=== PATIENT | female | born 1950 ===

== ENCOUNTER → 2018-09-07 05:47 | Day surgery (SDC) | payer MEDICARE ==
[~2018-09-07 05:47] MED LIST: Acetaminophen TAB* 325 MG ONE; Acetaminophen TAB* 325 MG PO ONE; Acetaminophen TAB* 325 MG PO PRN; Buffered Lidocaine 1% SYRIN* 1 ML/SYRINGE INTRADERM ONE; Bupivacaine 0.25% SDV PF* 10 ML VIAL INJ ONE; Bupivacaine 0.5% W/EPI SDV* 30 ML VIAL ONE; Dexamethasone IV* 4 MG/ML 1 ML (4 MG) ONE; DiMENhydriNATE IV* 50 MG/ML VIAL IV PUSH PRN; Famotidine IV* 10 MG/ML 2 ML (20 mg) ONE; HYDROcodone/ACETAMIN 5-325 MG* 1 TAB ONE; HYDROcodone/ACETAMIN 5-325 MG* 1 TAB PO PRN; Ketorolac INJ* 30 MG/ML 1 ML VIAL ONE; Lactated Ringers 1000 ML Bag* 1,000 ML IV SCH; Levalbuterol 0.63MG/3ML NEB* UNIT OF USE INH PRN; Lidocaine 2% PF * 5 ML VIAL ONE; Metoprolol Tartrate IV* 1 MG/ML 5 ML VIAL ONE; Midazolam* 1 MG/ML 2 ML VIAL (2 MG) ONE; Naloxone* 0.4 MG/ML 1 ML VIAL IV PRN; Ondansetron INJ* 2 MG/ML VIAL IV PRN; Ondansetron INJ* 2 MG/ML VIAL ONE; PROCHLORPERAZINE INJ 5 MG/ML 2 ML VIAL IV PRN; Propofol* 10 MG/ML 20 ML BTL ONE; ROPIVACAINE 5 MG/ML 30 ML BTL (0.5%) ONE; Ropivacaine (OR use only) 2 MG/ML 10 ML ONE; ceFAZolin 2 GM PREMIX in ORs 2 GM/50 ML BAG ONE; diPHENhydraMINE IV* 50 MG/ML 1 ml VIAL (BENADRYL) IV PRN; fentaNYL* 50 MCG/ML 2 ML VIAL (100 MCG VIAL) IV PRN; fentaNYL* 50 MCG/ML 2 ML VIAL (100 MCG VIAL) ONE
[2018-09-07] MEDS: fentaNYL* 50 MCG/ML 2 ML VIAL (100 MCG VIAL) IV PRN ×2 (10:41→11:57)
[2018-09-07] MEDS: HYDROcodone/ACETAMIN 5-325 MG* 1 TAB PO PRN ×2 (10:42→11:57)
--- NOTE | 2018-09-07 11:32 | OP ---
Operative Report - Blank - Operative Report Date of Operation: 09/07/18 Note: PATIENT: Rosalind Horowitz DATE OF : 1950 DATE OF SURGERY: 09/07/2018 SURGEON: Josue Mckeon MD QUALITY CONSULTANT: SAMI Salvador, whos assistance was necessary for positioning, retraction, help with instrumentation, and closure. ANESTHESIOLOGIST: Dr. 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 Painful retained hardware. 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 Painful retained hardware. OPERATION: 1. Removal of deep hardware from the left 4th and 5th metatarsals. 2. 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 3. 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 ANESTHESIA: General IMPLANTS: Arthrex plate and screws TOURNIQUET TIME: Less than 2 hours with a well-padded thigh tourniquet at 250mmHg SPECIMENS: none ESTIMATED BLOOD LOSS: minimal COMPLICATIONS: none STATUS: Stable from the operating room to the recovery room and then home. INDICATIONS FOR PROCEDURE: Rosalind had left 4th and 5th metatarsal fractures that went on to nonunion. She then had ORIFs and again went on to nonunions. Both operative and non operative treatment alternatives were reviewed. Further, the nature and risks of surgery were reviewed in careful detail, in the office as well as the pre-operative holding area. Our discussions regarding the risks of surgery included, but were not limited to, infection, wound problems, nerve injury, neuroma, RSD, persistent symptoms, blood clot, nonunion, malunion, hardware failure, failure of the surgery, and even the remote chance of catastrophic complication. DESCRIPTION OF PROCEDURE: The patient was seen in the preoperative holding unit and informed written consent was obtained. The appropriate extremity was marked. The patient was then brought to the operating room and carefully positioned on the operating room table. Anesthesia was induced. All bony prominences were padded with great care. A chlorhexidine based pre-scrub was performed followed by a chloraprep prep and drape in standard sterile fashion. A surgical safety pause was then conducted in which we confirmed the appropriate patient, extremity, planned procedure, availability of equipment, indication and administration of prophylactic antibiotics, and DVT prophylaxis in the form of a compression boot on the non-surgical extremity. I began by utilizing the prior longitudinal incision overlying the fourth metatarsal. This was extended. I dissected down to the fourth metatarsal plate. The screw heads were exposed and removed. The plate was then removed. I assessed the fracture site of the fourth metatarsal and it was grossly nonunited. I therefore cleaned out the fibrous tissue at the nonunion site with a scalpel and a rongeur. I then used a 2.4 mm justine to roughen up the nonunion ends of the bone. Attention was then turned to the left iliac crest which had been previously prepped and draped in a standard fashion. A small amount of Marcaine with epinephrine was placed in the subcutaneous tissues and then also used to anesthetize the periosteum and the soft tissues over the ASIS. Just posterior to the ASIS, a small stab incision using a 15 blade was made. A Jamshidi needle was then advanced being careful to stay centered on the iliac crest. This was advanced slowly and carefully through the superior cortex of the crest between the inner and outer tables of bone. The stylet was then removed from the Jamshidi needle and multiple cores on bone graft were harvested from the iliac crest. The incision site for the bone graft was then copiously irrigated and closed in layers utilizing 3-0 Monocryl and 3-0 nylon. A sterile dressing was applied. I then turned my attention back to the fourth metatarsal. Bone graft was packed into the nonunion site. The fracture site was compressed and a plate was placed dorsally. There was not much bone left proximally, so I spanned to the cuboid. Screws were placed with compression. This held the fourth metatarsal with good compression and well reduced. I then dissected laterally to the fifth metatarsal. A K wire was used to localize the cannulated screw and this was removed under fluoroscopic guidance. I then found the nonunion site. The fibrous nonunion was removed with a scalpel, and Jackson. The bone ends at the nonunion site were prepared with a 2.4 mm justine. Bone graft from the iliac crest was then placed into the nonunion site. A plate was then placed on the lateral aspect of the fifth metatarsal. Screws were placed. Final fluoroscopic images were obtained. A sterile dressing was then applied followed by a splint with the ankle in neutral position. The patient was then awakened from anesthesia and transferred to the recovery room in stable condition. There were no complications. All needle and sponge counts were correct at the end of the case. ATTESTATION: I attest I was present and scrubbed and performed the critical portions of the procedure myself. POSTOPERATIVE PLAN: The patient will remain [id number]. Follow up will be in two weeks for likely suture removal and Steri-Strip application.
[2018-09-07 12:53] VITALS: BP 126/75
== END | disposition home or self-care (01) ==
LOC: OR 05:47
PROVIDERS: ATTEND Orthopaedic Surgery
DX: S92.355K Nondisplaced fracture of fifth metatarsal bone, left foot, subsequent encounter for fracture with nonunion (principal); S92.345K Nondisplaced fracture of fourth metatarsal bone, left foot, subsequent encounter for fracture with nonunion; X58.XXXD Exposure to other specified factors, subsequent encounter; T84.84XA Pain due to internal orthopedic prosthetic devices, implants and grafts, initial encounter; Y83.1 Surgical operation with implant of artificial internal device as the cause of abnormal reaction of the patient, or of later complication, without mention of misadventure at the time of the procedure; Y92.9 Unspecified place or not applicable; J45.909 Unspecified asthma, uncomplicated; G89.18 Other acute postprocedural pain
CPT/HCPCS: 76000; 88300; A9270-GY; C1713; C1776; J0690; J1100; J1885; J2250; J2405; J2704; J2795; J3010; J3490